=== PATIENT | female | born 1970 | race Caucasian/White ===

== ENCOUNTER → 2019-04-03 13:37 | Outpatient (CLI) | payer OTHER, SELFPAY ==
--- NOTE | 2019-04-03 13:46 | US_ITS ---
STUDY: ULTRASOUND BREAST - RIGHT REASON FOR EXAM: Female, 48 years old. Abnormal screening mammograms. TECHNIQUE: Axial and longitudinal images of the RIGHT breast were performed with a high resolution ultrasound transducer. COMPARISON: None. FINDINGS: RIGHT Breast: Multiple cysts are seen throughout the right breast. The largest measures 4.2 cm x 3.2 cm by 1.5 cm. This is at the 1:00 position in the breast at 2 cm from the nipple. At the 12:00 position of the breast at 1 cm from nipple, there is a 3.3 cm x 2.5 sign of by 1 cm cystic nodule with low-level echoes within. This may represent an hemorrhagic cyst. IMPRESSION: Multiple cysts are seen in the right breast. ASSESSMENT CATEGORY: BIRADS Category 2: Benign. A letter regarding these results will be sent to the patient by the facility within 30 days. Electronically Signed: Earl Hendricks, at 15:56 EDT , Service support , STUDY: ULTRASOUND BREAST - LEFT REASON FOR EXAM: Female, 48 years old. Abnormal screening mammogram. TECHNIQUE: Axial and longitudinal images of the LEFT breast were performed with a high resolution ultrasound transducer. COMPARISON: None. FINDINGS: LEFT Breast: Multiple cysts are seen. The largest measures 2.8 cm x 3.5 cm x 1.0 cm. This is at the 4:00 position of the breast at 1 cm from the nipple. US/Breast Complete Bilateral IMPRESSION: Multiple breast cysts ASSESSMENT CATEGORY: BIRADS Category 2: Benign. A letter regarding these results will be sent to the patient by the facility within 30 days. Electronically Signed: Earl Hendricks, at 15:56 EDT , Service support ,
== END ==
PROVIDERS: Referring Provider Nurse Practitioner; Visit Provider Nurse Practitioner
DX: R92.8 Other abnormal and inconclusive findings on diagnostic imaging of breast (principal)
CPT/HCPCS: 76641

== ENCOUNTER → 2020-04-15 08:19 | Outpatient (CLI) | payer OTHER, SELFPAY ==
--- NOTE | 2020-04-15 08:20 | BI_ITS ---
MAMMOGRAPHY - BILATERAL SCREENING REASON FOR EXAM: Female, 49 years old. Routine annual screening examination. PERTINENT HISTORY: Non-contributory. TECHNIQUE: Digital bilateral breast stephania (3D mammographic acquisition) in the CC and MLO projections. 2-D mediolateral oblique (MLO) and craniocaudad (CC) views of both breasts were obtained. CAD: Full Field Digital Mammography with Computer Added Detection was performed. COMPARISON: Comparison is made with prior outside examination dated 03/20/2019. FINDINGS: Breast Composition: The breasts are extremely dense, which lowers the sensitivity of mammography. There are no dominant masses or suspicious calcifications. Stable scattered microcalcifications in both breasts. No focal cluster is seen. Several well-defined nodules are seen in both breasts. Ultrasound of both breasts is recommended for further evaluation. No other significant abnormalities are identified. BI/SCREEN MAMM (CAD) W/STEPHANIA BILAT IMPRESSION: Stable bilateral screening mammogram. Correlation with ultrasound of the right and left breast recommended. (A) ASSESSMENT CATEGORY: BIRADS Category 0: Incomplete. Need additional imaging evaluation. A letter regarding these results will be sent to the patient by the facility within 30 days. Approximately 10% of breast cancers are not detected by mammography. A normal mammogram should not delay biopsy of a clinically suspicious abnormality. [id number] Electronically Signed: Earl Hendricks, at 10:01 EST , Service support ,
== END ==
PROVIDERS: Referring Provider Nurse Practitioner; Visit Provider Nurse Practitioner
DX: Z12.31 Encounter for screening mammogram for malignant neoplasm of breast (principal)
CPT/HCPCS: 77063; 77067

== ENCOUNTER → 2020-04-26 07:55 | Outpatient (CLI) | payer OTHER, SELFPAY ==
--- NOTE | 2020-04-26 08:01 | US_ITS ---
STUDY: ULTRASOUND BREAST - RIGHT REASON FOR EXAM: Female, 49 years old. Abnormal screening mammogram. TECHNIQUE: Axial and longitudinal images of the RIGHT breast were performed with a high resolution ultrasound transducer. # OF IMAGES: 166 COMPARISON: Comparison is made with prior mammogram dated 04/15/2020 as well as prior ultrasound of the right breast dated 04/03/2019. FINDINGS: RIGHT Breast: The entire right breast was examined by ultrasound. Multiple cysts are seen. The largest cyst is at the 1 o''clock position in the breast at 2 cm from the nipple. This measures 4.5 cm x 3.8 cm x 1.2 cm. This is essentially unchanged. IMPRESSION: Stable multiple breast cysts. ASSESSMENT CATEGORY: BIRADS Category 2: Benign. A letter regarding these results will be sent to the patient by the facility within 30 days. Electronically Signed: Earl Hendricks, at 10:22 EST , Service support , STUDY: ULTRASOUND BREAST - LEFT REASON FOR EXAM: Female, 49 years old. Abnormal screening mammogram. TECHNIQUE: Axial and longitudinal images of the LEFT breast were performed with a high resolution ultrasound transducer. # OF IMAGES: 166 COMPARISON: Comparison is made with prior mammogram dated 04/15/2020 and prior sonogram of the left breast dated 04/03/2019. FINDINGS: LEFT Breast: Once again, multiple cysts are seen. The largest cyst is at the 4 o''clock position of the breast at 1 cm from nipple. This measures 3.4 cm x 4.4 cm x 1.5 cm. This has increased in size as compared to prior study. There is also evidence of a 1.4 cm x 1.1 cm hypoechoic nodule at the 12 o''clock position breast 1 cm from the nipple with the low-level echoes suggestive of debris within it. US/Breast Complete Unilateral IMPRESSION: Multiple left breast cysts. The largest cyst has increased in size and presently measures 3.4 cm x 4.4 cm x 1.5 cm. This is located at the 4 o''clock position of the breast at 1 cm from the nipple. ASSESSMENT CATEGORY: BIRADS Category 2: Benign. A letter regarding these results will be sent to the patient by the facility within 30 days. Electronically Signed: Earl Hendricks, at 10:24 EST , Service support ,
== END ==
PROVIDERS: Referring Provider Nurse Practitioner; Visit Provider Nurse Practitioner
DX: R92.8 Other abnormal and inconclusive findings on diagnostic imaging of breast (principal)
CPT/HCPCS: 76641

== ENCOUNTER → 2021-05-12 07:38 | Outpatient (CLI) | payer OTHER, SELFPAY ==
--- NOTE | 2021-05-12 07:55 | BI_ITS ---
MAMMOGRAPHY - BILATERAL SCREENING REASON FOR EXAM: Female, 50 years old. Routine annual screening examination. PERTINENT HISTORY: Non-contributory. TECHNIQUE: Digital bilateral breast stephania (3D mammographic acquisition) in the CC and MLO projections. 2-D mediolateral oblique (MLO) and craniocaudad (CC) views of both breasts were obtained. CAD: Full Field Digital Mammography with Computer Added Detection was performed. COMPARISON: Comparison is made with prior study dated 04/15/2020. FINDINGS: Breast Composition: The breasts are extremely dense, which lowers the sensitivity of mammography. There are no dominant masses or suspicious calcifications. Stable scattered microcalcifications bilaterally. No focal cluster is seen. Stable appearance of the scattered bilateral small breast nodules. Prior sonogram demonstrated these to be multiple cysts. No other significant abnormalities are identified. There has been no significant change since the prior study. BI/SCRN MAMM (CAD)W/STEPHANIA BILAT IMPRESSION: Stable bilateral screening mammogram. Yearly follow-up mammogram recommended. (A) ASSESSMENT CATEGORY: BIRADS Category 2: Benign. A letter regarding these results will be sent to the patient by the facility within 30 days. Approximately 10% of breast cancers are not detected by mammography. A normal mammogram should not delay biopsy of a clinically suspicious abnormality. [id number] Electronically Signed: Earl Hendricks MD at 8:34 EST , Service support ,
== END ==
PROVIDERS: Referring Provider Nurse Practitioner; Visit Provider Nurse Practitioner
DX: Z12.31 Encounter for screening mammogram for malignant neoplasm of breast (principal)
CPT/HCPCS: 77063; 77067

== ENCOUNTER → 2022-06-29 | Outpatient (CLI) | payer OTHER, SELFPAY ==
--- NOTE | 2022-06-29 08:55 | BI_ITS ---
MAMMOGRAPHY - BILATERAL DIAGNOSTIC REASON FOR EXAM: Female, 51 years old. 2 month history of right breast lump. PERTINENT HISTORY: Non-contributory. TECHNIQUE: Digital bilateral breast leann (3D mammographic acquisition) in the CC and MLO projections. 2-D mediolateral oblique (MLO) and craniocaudad (CC) views of both breasts were obtained. CAD: Full Field Digital Mammography with Computer Added Detection was performed. COMPARISON: Comparison is made with prior mammogram dated 05/12/2021 and 04/15/2020. FINDINGS: Breast Composition: The breasts are extremely dense, which lowers the sensitivity of mammography. Bilateral breast nodules. More prominent in the right breast. Correlation with the ultrasound of the right breast is recommended for further evaluation. Stable scattered bilateral calcifications. No focal cluster is seen. Stable small bilateral axillary lymph nodes. No other significant abnormalities are identified. BI/DIAG MAMM W/CAD, BILAT IMPRESSION: Dominant nodular density in the right breast. Correlation with ultrasound recommended. ASSESSMENT CATEGORY: BIRADS Category 0: Incomplete. Need additional imaging evaluation. A letter regarding these results will be sent to the patient by the facility within 30 days. Approximately 10% of breast cancers are not detected by mammography. A normal mammogram should not delay biopsy of a clinically suspicious abnormality. Electronically Signed: Earl Hendricks MD at 9:37 EST ,
--- NOTE | 2022-06-29 08:55 | US_ITS ---
STUDY: ULTRASOUND BREAST - RIGHT REASON FOR EXAM: Female, 51 years old. Right breast lump. TECHNIQUE: Axial and longitudinal images of the RIGHT breast were performed with a high resolution ultrasound transducer. # OF IMAGES: 12 COMPARISON: Comparison is made with prior mammogram done earlier today and prior sonogram of the right breast dated 04/26/2020. FINDINGS: RIGHT Breast: The upper inner quadrant of the right breast was examined with ultrasound. There is a 4.7 cm x 2.5 cm x 1.8 cm cyst at the 1 o''clock position of the breast at 4 cm from the nipple. US/Breast Limited Unilateral IMPRESSION: The palpable abnormality corresponds a 4.7 cm by 2.5 cm x 1.8 cm cyst at the 1 o''clock position of the breast at 4 cm from the nipple. ASSESSMENT CATEGORY: BIRADS Category 2: Benign. A letter regarding these results will be sent to the patient by the facility within 30 days. Electronically Signed: Earl Hendricks MD at 13:53 EST ,
== END | disposition home or self-care (01) ==
PROVIDERS: Visit Provider Nurse Practitioner
DX: R92.2 Inconclusive mammogram (principal); N60.09 Solitary cyst of unspecified breast; R92.8 Other abnormal and inconclusive findings on diagnostic imaging of breast; N60.11 Diffuse cystic mastopathy of right breast; N60.12 Diffuse cystic mastopathy of left breast
CPT/HCPCS: 76642; 77062; 77066; G0279

== ENCOUNTER → 2023-07-16 | Outpatient (CLI) | payer OTHER, SELFPAY ==
--- NOTE | 2023-07-16 09:03 | BI_ITS ---
MAMMOGRAPHY - BILATERAL DIAGNOSTIC REASON FOR EXAM: Female, 52 years old. Fibrocystic disease. PERTINENT HISTORY: Non-contributory. TECHNIQUE: Digital bilateral breast leann (3D mammographic acquisition) in the CC and MLO projections. 2-D mediolateral oblique (MLO) and craniocaudad (CC) views of both breasts were obtained. Compression spot views of the left breast were obtained as well. CAD: Full Field Digital Mammography with Computer Added Detection was performed. COMPARISON: Comparison is made with prior study dated June 29, 2022 and May 12, 2021. FINDINGS: Breast Composition: The breasts are extremely dense, which lowers the sensitivity of mammography. New focus of calcification is seen in the slightly lateral retroareolar region of the left breast. Biopsy recommended. No other significant abnormalities are identified. BI/DIAG MAMM W/CAD, BILAT IMPRESSION: New focus of calcification is seen in the slightly lateral retroareolar region of the left breast as described. Biopsy recommended. ASSESSMENT CATEGORY: BIRADS Category 4: Suspicious - Biopsy Should Be Considered. A letter regarding these results will be sent to the patient by the facility within 30 days. Approximately 10% of breast cancers are not detected by mammography. A normal mammogram should not delay biopsy of a clinically suspicious abnormality. Electronically Signed: Earl Hendricks MD at 10:34 EST ,
== END | disposition home or self-care (01) ==
PROVIDERS: Referring Provider Nurse Practitioner; Visit Provider Nurse Practitioner
DX: N60.11 Diffuse cystic mastopathy of right breast (principal); N60.12 Diffuse cystic mastopathy of left breast; N60.01 Solitary cyst of right breast
CPT/HCPCS: 77062; 77066; G0279

== ENCOUNTER → 2023-08-08 | Outpatient (CLI) | payer OTHER, SELFPAY ==
--- NOTE | 2023-08-08 11:28 | US_ITS ---
STUDY: ULTRASOUND BREAST - LEFT REASON FOR EXAM: Female, 52 years old. Abnormal screening mammogram. TECHNIQUE: Axial and longitudinal images of the LEFT breast were performed with a high resolution ultrasound transducer. # OF IMAGES: 21 COMPARISON: Comparison is made with prior mammogram dated July 16, 2023 and prior sonogram of the left breast dated April 26, 2020. FINDINGS: LEFT Breast: There is a 1.1 cm x 1.3 cm x 0.8 cm well-defined hypoechoic nodule at the 3:00 position of the breast at 3 cm from the nipple. This most likely represents a fibroadenoma. There is a 5 mm x 6 mm x 5 mm hypoechoic nodule with tiny calcifications within it at the 12:00 position on the breast a 1 cm from the nipple. This most likely represents a tiny fibroadenoma. There is evidence of a 5 mm x 5 mm x 4 mm cyst at the 2:00 position of the breast at 1 cm from the nipple. There is also evidence of a 1.1 cm x 1 cm x 1 cm cyst at the 2:00 region of the breast at 5 cm from nipple. US/Breast Limited Unilateral IMPRESSION: 1.1 cm x 1.3 cm x 0.8 cm well-defined hypoechoic nodule at the 3:00 position of the breast at 3 cm from nipple. This most likely represents a fibroadenoma. This is unchanged. ASSESSMENT CATEGORY: BIRADS Category 2: Benign. A letter regarding these results will be sent to the patient by the facility within 30 days. Electronically Signed: Earl Hendricks MD at 9:26 EST ,
--- NOTE | 2023-08-08 12:03 | PCM.PN.BLA ---
Progress Note Did get images with the stereotactic imaging however due to breast size and thickness the calculated distance would continue to hit the back plate. In CC and lateral which then would be also aimed at the nipple?thus increased risk of bleeding. The decide to get an ultrasound of the breast to see if this is something we can do under ultrasound initially it does appear that there are calcifications at different cyst that we could get in that area there also may be hypoechoic lesion consistent with fibroadenoma. Will wait for the official ultrasound the breast reading and then will plan for ultrasound-guided biopsy down in mammography. This was discussed with the patient as well she was agreeable with plan.
== END | disposition home or self-care (01) ==
LOC: BIRAD 10:26
PROVIDERS: PCP Nurse Practitioner; Referring Provider Surgery; Visit Provider Surgery
DX: R92.8 Other abnormal and inconclusive findings on diagnostic imaging of breast (principal)
CPT/HCPCS: 19081; 76642

== ENCOUNTER → 2024-02-21 | Outpatient (CLI) | payer OTHER, SELFPAY ==
--- NOTE | 2024-02-21 07:53 | US_ITS ---
STUDY: ULTRASOUND BREAST - LEFT REASON FOR EXAM: Female, 53 years old. Abnormal ultrasound. TECHNIQUE: Axial and longitudinal images of the LEFT breast were performed with a high resolution ultrasound transducer. # OF IMAGES: 22 COMPARISON: Comparison is made with prior sonogram of the left breast dated April 07, 2024. FINDINGS: LEFT Breast: Stable well-defined 1.1 cm x 1.3 cm x 0.8 cm well-defined nodule at the 3:00 position of the breast at 2 cm from nipple. This most likely represents a fibroadenoma. There is also evidence of a 1.1 cm x 1.0 cm x 0.9 cm cyst with debris within it. This is at the 2:00 position of the breast at 5 cm from the nipple. There is a 5 mm x 5 mm x 4 mm hypoechoic nodule at the 12:00 position of the breast at 1 cm from the nipple suggestive of a small fibroadenoma. US/Breast Limited Unilateral IMPRESSION: Stable examination. ASSESSMENT CATEGORY: BIRADS Category 2: Benign. A letter regarding these results will be sent to the patient by the facility within 30 days. Electronically Signed: Earl Hendricks MD at 12:00 EDT ,
== END | disposition home or self-care (01) ==
PROVIDERS: PCP Nurse Practitioner; Referring Provider Surgery; Visit Provider Surgery
DX: R92.30 Dense breasts, unspecified (principal); R92.8 Other abnormal and inconclusive findings on diagnostic imaging of breast
CPT/HCPCS: 76642

== ENCOUNTER → 2024-07-31 | Outpatient (CLI) | payer SELFPAY ==
--- NOTE | 2024-07-31 08:50 | BI_ITS ---
PROCEDURE: DIAG MAMM W/CAD, BILAT REASON FOR EXAM: F, Age 53 y/o, history of bilateral fibroadenomas. Prior left ultrasound-guided and stereotactic guided breast biopsies. TECHNIQUE: Bilateral screening digital breast tomosynthesis with 2D and 3D images. Computer aided detection. COMPARISON: Prior exam(s) dating back to July 16, 2023.. FINDINGS: The breasts are extremely dense which lowers the sensitivity of mammography. There is a 6.4 mm by 6.4 mm calcified nodule in the superior retroareolar region of the left breast. There is also evidence of a 7.4 cm by 7.9 cm rounded nodular density in the retroareolar region of the right breast. The calcified nodule in the left breast most likely origin of the fibroadenoma. Correlation with ultrasound of both breasts recommended. BI/DIAG MAMM W/CAD, BILAT IMPRESSION: BI-RADS 0: INCOMPLETE - NEED ADDITIONAL IMAGING EVALUATION. Follow-up code: Sonographic correlation recommended. The patient will be notified of the results by letter. Reading Location: [place] [id number]
--- NOTE | 2024-07-31 08:52 | US_ITS ---
PROCEDURE: BREAST LIMITED UNILATERAL REASON FOR EXAM: Abnormal screening mammogram. COMPARISON: Comparison is made with prior mammogram done earlier in the day. TECHNIQUE: Targeted left breast ultrasound. FINDINGS: LEFT: Ultrasound targeted to the periareolar region at the left breast. There is a 1.2 cm x 1.1 cm x 0.9 cm calcified fibroadenoma at the 3 o'clock position of the breast at 2 cm from the nipple. Several small cysts are seen between the 12 o'clock and 2 o'clock radiant of the left breast. The largest cyst measures 1 cm x 1 cm x 0.9 cm. US/Breast Limited Unilateral IMPRESSION: Several subcentimeter cysts are seen in the periareolar region. There is a 1.2 cm x 1.1 cm x 0.9 cm calcified fibroadenoma at the 3 o'clock pos ition of the breast at 2 cm from the nipple. BI-RADS 2: BENIGN. RECOMMEND ANNUAL MAMMOGRAPHIC SCREENING. Reading Location: [facility]
== END | disposition home or self-care (01) ==
PROVIDERS: PCP Nurse Practitioner; Referring Provider Nurse Practitioner; Visit Provider Nurse Practitioner
DX: N60.01 Solitary cyst of right breast (principal); N60.11 Diffuse cystic mastopathy of right breast; N60.12 Diffuse cystic mastopathy of left breast; D24.2 Benign neoplasm of left breast
CPT/HCPCS: 76642; 77062; 77066; G0279